=== PATIENT | female | born 1950 | race Caucasian/White ===

== ENCOUNTER 2019-06-01 08:10 | Inpatient (IN) | payer OTHER ==
[~2019-06-01] VITALS: Ht 170.2 cm; Wt 99.5 kg
[2019-06-01 08:17] VITALS: Ht 170.2 cm; Wt 99.5 kg
--- NOTE | 2019-06-01 08:24 | NUR ---
PT CAME TO THE ED TODAY WITH CO SOB X 1 WEEK ON AND OFF. PT STATES SHE CALLED HER PMD AND THEY TOLD HER TO CALL 911. PT STATES MEDICS EVALUATED HER AT HOME AND SENT HER BY PRIVATE AUTO TO ER. AT THIS TIME PT IS AWAKE AND ALERT. BREATHING EVEN AND UNLABORED. PT STATES SOMETIMES SHE FEELS LIKE SHE DOESNT [place] ENOUGH AIR SO SHE INHALES DEEPLY. PT IS ABLE TO SPEAK IN FULL CLEAR SENTENCES. 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 PT DENIES ANY N/V/D. PT SITTING ON GURNEY WITH NAD. WILL CONTINUE TO MONITOR
--- NOTE | 2019-06-01 08:33 | NUR ---
PT STATING THAT SHE HAS BEEN SUFFERING FROM ANXIETY FOR THE LAST YEAR AND WAKING UP IN PANIC. PT ALSO STATES SHE SLEEPS WITH A CPAP MACHINE
[2019-06-01 09:34] LABS: BASOPHIL % 0.7 % (0-2); PLATELET COUNT 162 x10^3mcL (130-400); RED CELL DISTRIBUTION WIDTH 13.5 % (11.5-14.5)
[2019-06-01 09:46] LABS: UA SPECIFIC GRAVITY 1.015 (1.005-1.035); microscopic required? YES; urine erythrocyte NEGATIVE (NEGATIVE)
[2019-06-01 09:49] LABS: CALCIUM 8.3 mg/dL (8.5-10.1); CARBON DIOXIDE 25.3 mmol/L (21-32); CHLORIDE SERUM 109 mmol/L (98-107); CREATININE SERUM 0.8 mg/dL (0.6-1.0); GFR1 > 60 mL/min; GLUCOSE SERUM 115 mg/dL (74-106); POTASSIUM SERUM 4.5 mmol/L (3.5-5.1); SODIUM SERUM 143 mmol/L (136-145)
[2019-06-01 09:53] LABS: ALBUMIN 3.6 g/dL (3.4-5.0); ALKALINE PHOSPHATASE 87 U/L (46-116); ALT/SGPT 93 U/L (14-59); AST/SGOT 60 U/L (15-37); BILIRUBIN TOTAL 0.5 mg/dL (0.20-1.00); LIPASE 110 IU/L (73-393); TOTAL PROTEIN, SERUM 7.5 g/dL (6.4-8.2)
[2019-06-01] MEDS ORDERED: VOLTAREN-XR100 MG PO (10:54)
[2019-06-01] MEDS ORDERED: PROTONIX40 MG PO (10:54)
[2019-06-01] MEDS ORDERED: LIPI20 PO (10:54)
[2019-06-01] MEDS ORDERED: NITROFURANTOIN100 MG PO (10:54)
--- NOTE | 2019-06-01 11:19 | NUR ---
REPORT GIVEN TO BELGICA MARTIN ON MS/T FOR FURTHER CARE OF PT
[2019-06-01 12:12] LABS: CHOLESTEROL/HDL RATIO 2.3
--- NOTE | 2019-06-01 12:30 | NUR ---
PT BROUGHT UP FROM ED, PT RESTING IN BED WITH CC OF SOB X 1 WEEK. PT A/A/O X4, BREATHING EVEN AND UNLABORED ON RA. NO SOB NOTED AT THIS TIME. CO 4/10 L CHEST PRESSURE, TOLERABLE AT THIS TIME. SHOWING SBR ON TELE #18/ HR 59. PT REPORTS HAVING FREQUENT BLADDER INFECTIONS, RECENT UTI, BURNING ON URINATION. IV TO RAC, NO REDNESS/SWELLING. 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 DENIES ITCHINESS TO AFFECTED AREAS. ORIENTED TO ROOM AND SURROUNDINGS, AT BEDSIDE. BED IN LOW POSITION, CALL LIGHT IN REACH. WILL CONTINUE TO MONITOR.
--- NOTE | 2019-06-01 14:20 | NUR ---
PT SITTING UP IN BED EATING LUNCH. NO ACUTE DISTRESS. RESP EVEN AND UNLABORED ON RA. C/O MILD LEFT CHEST PAIN 4/10, TOLERABLE. NO SOB NOTED. IVF INFUSING, NO REDNESS OR SWELLING. CALL LIGHT WITHIN REACH. WILL CONTINUE TO MONITOR.
[2019-06-01 14:40] VITALS: BP 123/64
[2019-06-01 16:47] VITALS: BP 111/64
--- NOTE | 2019-06-01 17:23 | NUR ---
PT C/O FEELING LIGHTHEADED, STATED SOMETIMES SHE GETS THE SAME FEELING WHEN SHE IS HUNGRY. SPOT CHECKED BLOOD GLUCOSE = 131. ALSO CHECKED BP = 106/52 (MAP 69), HR 56. PT ASSISTED TO BATHROOM AND BACK TO BED REQUESTED. INSTRUCTED PT TO CALL FOR ASSISTANCE WHEN AMBULATING, PT VERBALIZED UNDERSTANDING. CALL LIGHT WITHIN REACH. WILL CONTINUE TO MONITOR.
[2019-06-01 17:27] VITALS: BP 106/52
[2019-06-01 17:38] LABS: AMPHETAMINE QUAL UR NONE DETECTED (See below)
--- NOTE | 2019-06-01 18:20 | NUR ---
PT SITTING UP IN BED WATCHING TV. BREATHING EVEN AND UNLABORED ON RA. C/O L CHEST PRESSURE 4/10, TOLERABLE. IVF INFUSING, NO REDNESS OR SWELLING TO IV SITE. FALL PRECAUTIONS IN PLACE. INFORMED PT OF NPO STATUS AT MIDNIGHT FOR US GALLBLADDER TEST IN AM, PT VERBALIZED UNDERSTANDING. AT BEDSIDE. BED IN LOW POSITION, CALL LIGHT WITHIN REACH. WILL ENDORSE TO ONCOMING SHIFT.
--- NOTE | 2019-06-01 20:00 | NUR ---
RECEIVED PT IN BED STATED "WHEN I GOT OUT OF BED TO BATHROOM I HAD EPISODS OF LIGHTHEADED" ORTHROSTATIC BP WAS LAYING DOWN BP 103/51 HR 68 SITTING 98/59 HR 72 STANDING 136/68 HR 87, DR ENRIQUE AND DR LARKIN AWARE , PT'S N BED AT THE MOMENT DENY CHEST PAIN , TEHE NUMBER 18 SHOWS NSR . PIV INTACT INFUSING
--- NOTE | 2019-06-02 03:10 | NUR ---
I HAVE REVIEWED THE DATA COLLECTION BY MACHINE FEED OPERATOR (NAME):ROSE RIVERA ENTERED ON (DATE/TIME): I CONCUR WITH THE DATA AND ANY EXCEPTIONS OR COMMENTS ARE LISTED BELOW:
[2019-06-02 04:57] VITALS: BP 129/69
[2019-06-02 06:16] LABS: BASOPHIL % 0.5 % (0-2); PLATELET COUNT 145 x10^3mcL (130-400); RED CELL DISTRIBUTION WIDTH 14.2 % (11.5-14.5)
--- NOTE | 2019-06-02 06:45 | NUR ---
PT'S IN BED AWAKE TALKING TO HER FAMILY , DENY CHEST PAIN AT THE MOMENT , TELE NSR , PIV INTACT INFUSING WELL.
[2019-06-02 06:47] LABS: CALCIUM 8.5 mg/dL (8.5-10.1); CARBON DIOXIDE 27.2 mmol/L (21-32); CHLORIDE SERUM 109 mmol/L (98-107); CREATININE SERUM 0.9 mg/dL (0.6-1.0); GFR1 > 60 mL/min; GLUCOSE SERUM 102 mg/dL (74-106); PHOSPHOROUS 4.2 mg/dL (2.5-4.9); POTASSIUM SERUM 4.1 mmol/L (3.5-5.1); SODIUM SERUM 144 mmol/L (136-145)
[2019-06-02 07:32] VITALS: BP 122/58
--- NOTE | 2019-06-02 07:40 | NUR ---
RECEIVED PT LYING IN BED, A/A/O X4. BREATHING EQUAL/ UNLABORED ON ROOM AIR. PT NPO FOR PROCEDURE. IVF RUNNING AT 100ML/HR. BED IN LOW POSITION, CALL LIGHT IN REACH. WILL CONTINUE TO MONITOR
[2019-06-02 11:48] VITALS: BP 108/61
--- NOTE | 2019-06-02 12:50 | NUR ---
PT SITTING IN BED, A/A/OX4. PT IN NO APPARENT DISTRESS. NO CO CHEST PAIN AT THIS TIME. BED IN LOW POSITION, CALL LIGHT IN REACH. WILL CONTINUE TO MONITOR
[2019-06-02 16:20] VITALS: BP 118/59
--- NOTE | 2019-06-02 18:30 | NUR ---
PT SITTING UP IN BED, A/A/OX4. APPEARS TO BE IN NO DISTRESS. NO C/O CHEST PAIN AT THIS TIME. BREATHING EQUAL AND UNLABORED ON RA. IVF RUNNING AT 100ML/HR. NO REDNESS,SWELLING, PAIN AT IV SITE. BED IN LOW POSITION, CALL LIGHT IN REACH. WILL ENDORSE TO ON COMING NURSE
--- NOTE | 2019-06-02 19:15 | NUR ---
NURSING CO-SIGN THE DOCUMENTATION ENTERED BY THE RN MELIA HAS BEEN REVIEWED. REVIEWED/CO-SIGNED BY: Carissa Chao DOCUMENTATION DONE BY:AMADA MÁRQUEZ
[2019-06-02 19:20] VITALS: BP 117/51
--- NOTE | 2019-06-02 19:54 | NUR ---
BRANDY ABURTO IN PT'S ROOM.
--- NOTE | 2019-06-02 20:45 | NUR ---
DR. HERNANDEZ INFORMED PT REFUSED LOPRESSOR.
--- NOTE | 2019-06-03 00:45 | NUR ---
EYES CLOSED, BREATHING EVEN AN UNLABORED ON CPAP. CALL LIGHT WITHIN EASY REACH. HOB ELEVATED 30 DEG.
--- NOTE | 2019-06-03 00:50 | NUR ---
LATE ENTRY: 2000H - AWAKE AND ALERT, ORIENTED TO NAME, PLACE, TIME AND SITUATION. SPEECH CLEAR AND APPROPRIATE. AMBULATORY. DENIES HAVING PAIN AT THIS TIME. SINUS RHYTHM ON TELE, HR 68/MIN. FAMILY MEMBERS IN ROOM. IVF INFUSING WELL.
--- NOTE | 2019-06-03 01:23 | NUR ---
PT STATED HAVING SOME DISCOMFORT TO IV SITE. IV REMOVED, INTACT, NO ERYTHEMA OR SWELLING NOTED. NURSE SURU INSERTED NEW IV, 22G TO LEFT FOREARM
--- NOTE | 2019-06-03 02:17 | NUR ---
EYES CLOSED, BREATHING UNLABORED ON CPAP. CALL LIGHT WITHIN EASY REACH.
[2019-06-03 04:53] VITALS: BP 122/64
[2019-06-03 06:18] LABS: BASOPHIL % 0.5 % (0-2); PLATELET COUNT 141 x10^3mcL (130-400); RED CELL DISTRIBUTION WIDTH 14.3 % (11.5-14.5)
--- NOTE | 2019-06-03 06:21 | NUR ---
OFF CPAP. ON ROOM AIR. AWAKE AND ALERT, WATCHING TV. BREATHING EVEN AND UNLABORED. IVF INFUSING WELL. IV SITE FREE FROM ERYTHEMA OR SWELLING. CALL LIGHT WITHIN EASY REACH.
[2019-06-03 06:44] LABS: CALCIUM 8.3 mg/dL (8.5-10.1); CARBON DIOXIDE 26.7 mmol/L (21-32); CHLORIDE SERUM 111 mmol/L (98-107); CREATININE SERUM 0.8 mg/dL (0.6-1.0); GFR1 > 60 mL/min; GLUCOSE SERUM 102 mg/dL (74-106); PHOSPHOROUS 3.8 mg/dL (2.5-4.9); SODIUM SERUM 146 mmol/L (136-145)
--- NOTE | 2019-06-03 07:09 | NUR ---
AWAKE AND ALERT, BREATHING EVEN AND UNLABORED IN ROOM AIR. IN NO ACUTE DISTRESS. CALL LIGHT WITHIN EASY REACH. ENDORSED TO NURSE KONSTANTIN
--- NOTE | 2019-06-03 07:35 | NUR ---
RECEIVED PT IN NO ACUTE DISTRESS. SITTING UP IN BED. AAOX4. RESP EVEN AND UNLABORED ON RA. NO C/O CP OR PRESSURE. IVF INFUSING TO LFA, NO REDNESS OR SWELLING NOTED. BED IN LOW POSITION, CALL LIGHT WITHIN REACH. WILL CONTINUE TO MONITOR.
[2019-06-03 08:32] VITALS: BP 127/65
[2019-06-03 11:54] VITALS: BP 105/50
[2019-06-03 11:56] VITALS: BP 105/50
--- NOTE | 2019-06-03 12:38 | NUR ---
PT AWAKE, ALERT, AND ORIENTED. VSS. AMBULATORY. DISCHARGE EDUCATION PROVIDED, PT VERBALIZED UNDERSTANDING. 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 STATED SHE HAS FOLLOW UP APPT WITH PCP ON MONDAY. IV DC'D WITH CATHETER INTACT. TELE REMOVED. BELONGINGS WITH PT. PT EATING LUNCH AT THIS TIME. WILL CONTINUE TO MONITOR.
--- NOTE | 2019-06-03 12:52 | NUR ---
PT DISCHARGED TO HOME IN NO ACUTE DISTRESS. AWAKE, ALERT, AND ORIENTED. TRANSPORTED VIA WHEELCHAIR. BELONGINGS WITH PT. DAKSHA ALFREDO ACCOMPANIED PT TO LOBBY.
== END 2019-06-03 12:53 | disposition home or self-care (01) | DRG 206 ==
LOC: ED 08:10 → DU 10:41
PROVIDERS: Emergency Medicine; ADMIT Internal Medicine
DX: M94.0 Chondrocostal junction syndrome [Tietze] (principal); N39.0 Urinary tract infection, site not specified; E87.8 Other disorders of electrolyte and fluid balance, not elsewhere classified; R74.0 Nonspecific elevation of levels of transaminase and lactic acid dehydrogenase [LDH]; G47.30 Sleep apnea, unspecified; E78.5 Hyperlipidemia, unspecified; K76.0 Fatty (change of) liver, not elsewhere classified; Z79.82 Long term (current) use of aspirin; Z68.35 Body mass index [BMI] 35.0-35.9, adult; Z96.653 Presence of artificial knee joint, bilateral
CPT/HCPCS: 36600; 82962; 83880; G0378; J7030; J8597; Q0092